=== PATIENT | female | born 1965 | race Caucasian/White ===

== ENCOUNTER 2016-07-28 14:40 | Emergency (ER) | payer MEDICARE ==
--- NOTE | 2016-08-10 08:25 | ER ---
ADMIT: 07/28/2016 RM/LOC: ER [facility] MR#: [id number] [address] [id number] [address] CA[address] [place] [address] Emergency Room Report SEX: F AGE: 51 : 1965 DATE: 07/28/2016 ADDENDUM: This patient comes into ER because she was walking, stepped in a hole and twisted her left ankle. It is red and swollen. She does bear weight, but it is tender. X-ray was negative for any fractures. She was placed in an Loki wrap and an air splint. I wrote a prescription for tramadol, and she is to follow up with her primary in the next week if she is not feeling better. Please see my T-sheet. KANA Sainz / Aakash Willis MD / magali JOB #: [id number] CC: Aakash Willis MD, Attending Physician Eladia Ramos MD, Family Physician
== END 2016-07-28 15:55 | disposition home or self-care (01) ==
LOC: ER 14:40
DX: S93.402A Sprain of unspecified ligament of left ankle, initial encounter (principal); Z79.899 Other long term (current) drug therapy; W18.42XA Slipping, tripping and stumbling without falling due to stepping into hole or opening, initial encounter; Y92.009 Unspecified place in unspecified non-institutional (private) residence as the place of occurrence of the external cause